=== PATIENT | female | born 1995 | race Caucasian/White ===

== ENCOUNTER 2018-04-25 22:47 | Emergency (ER) | payer SELFPAY ==
[2018-04-25] MEDS ORDERED: NA CHLORIDE 0.9% 1,000 ML ONE (23:39)
[2018-04-25] MEDS ORDERED: DICYCLOMINE HCL 10 MG CAP ONE (23:39)
[2018-04-25 23:59] LABS: Absolute Lymphocytes (CBC) 2.7 K/uL (0.7-4.9); Absolute Monocytes 0.8 K/uL (0.1-1.3); Basophils % 0.2 % (0-1.3); Eosinophils % 0.5 % (0-4.4); Hematocrit 41.2 % (36.0-45.0); Lymphocytes % 23.2 % (15.3-44.8); MCV 84.1 fL (80-100); MPV 10.1 fL (7.6-11.3); Monocytes % 6.6 % (3.3-12.3)
[2018-04-26 00:30] LABS: ALT/SGPT 29 U/L (12-78); AST/SGOT 34 U/L (15-37); Albumin 3.8 g/dL (3.4-5.0); Alkaline Phosphatase 85 U/L (45-117); BUN Blood Urea Nitrogen 12 mg/dL (7-18); Bicarbonate 27 mmol/L (21-32); Bilirubin Direct < 0.1 mg/dL (0-0.2); Bilirubin Total 0.2 mg/dL (0.2-1.0); Glucose Level 108 mg/dL (74-106); Lipase 304 U/L (73-393); Potassium 3.4 mmol/L (3.5-5.1); Protein, Total 8.2 g/dL (6.4-8.2); Sodium Level 139 mmol/L (136-145)
[2018-04-26 00:55] LABS: Urine Blood 3+ (NEG); Urine Glucose NEGATIVE (NEG); Urine Protein 1+ (NEG); Urine Specific Gravity <1.005 (1.005-1.030)
[2018-04-26 00:59] LABS: Urine Bacteria <20 /HPF (<20)
[2018-04-26 01:00] LABS: Calcium Oxalate Crystals- Ur MANY (NONE SEEN); Urine Culture Reflex Order REFLEXED; Urine Mucus 2+ /HPF (NONE SEEN)
[2018-04-26] MEDS ORDERED: FENTANYL CITR 100 MCG/2 ML ONE (01:26)
--- NOTE | 2018-04-26 02:33 | ER ---
Nurse's Notes [facility] Name: Ruth Lora Age: 23 yrs Sex: Female : 1995 Arrival Date: 04/25/2018 Time: 22:48 Bed 13 Private MD: Diagnosis: Upper abdominal pain, unspecified Presentation: 04/25 23:03 Presenting complaint: Patient states: that she is having severe upper abd pain that fc started at approx 1999, it went away and then came back. Positive for nausea and vomiting. Pt states that she ate steak and potatoes at 2030. Transition of care: patient was not received from another setting of care. Onset of symptoms was April 25, 2018 at 20:00. Risk Assessment: Do you want to hurt yourself or someone else? Patient reports no desire to harm self or others. Initial Sepsis Screen: Does the patient meet any 2 criteria? No. Patient's initial sepsis screen is negative. Does the patient have a suspected source of infection? No. Patient's initial sepsis screen is negative. Care prior to arrival: None. 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 - Social history:: Smoking status: Patient/guardian denies using tobacco, Patient/guardian denies using alcohol, street drugs. - Ebola Screening: : Patient negative for fever greater than or equal to 101.5 degrees Fahrenheit, and additional compatible Ebola Virus Disease symptoms Patient denies exposure to infectious person Patient denies travel to an Ebola-affected area in the 21 days before illness onset. Screenin:43 Abuse screen: Denies threats or abuse. Denies injuries from another. Nutritional ao screening: No deficits noted. Tuberculosis screening: No symptoms or risk factors identified. Fall Risk None identified. Assessment: 23:40 General: Appears in no apparent distress. uncomfortable, obese, Behavior is calm, ao cooperative, anxious. Pain: Complains of pain in abdomen Pain currently is 10 out of 10 on a pain scale. Neuro: Level of Consciousness is awake, alert, obeys commands, Oriented to person, place, time, situation, Appropriate for age Moves all extremities. Full function Speech is normal, Facial symmetry appears normal, Pupils are PERRLA. Cardiovascular: Capillary refill < 3 seconds Patient's skin is warm and dry. Respiratory: Airway is patent Respiratory effort is even, unlabored, Respiratory pattern is regular, symmetrical. GI: Abdomen is round obese, Bowel sounds present X 4 quads. Abd is soft and non tender X 4 quads. Reports lower abdominal pain, bloating, Pain is 10 out of 10 on a pain scale. : No signs and/or symptoms were reported regarding the genitourinary system. EENT: No signs and/or symptoms were reported regarding the EENT system. Derm: Skin is intact, Skin is moist, Skin is pink, warm \T\ dry. normal, Skin temperature is warm. Musculoskeletal: Circulation, motion, and sensation intact. Range of motion: intact in all extremities. 04/26 00:17 Reassessment: Patient appears in no apparent distress at this time. Patient and/or ao family updated on plan of care and expected duration. Pain level reassessed. Patient is alert, oriented x 3, equal unlabored respirations, skin warm/dry/pink. Waiting on CT scan. 01:26 Reassessment: Patient appears in no apparent distress at this time. Patient and/or ao family updated on plan of care and expected duration. Pain level reassessed. Patient is alert, oriented x 3, equal unlabored respirations, skin warm/dry/pink. Patient going to CT. Vital Signs: 04/25 23:05 BP 127 / 78; Pulse 75; Resp 18; Temp 97.7(O); Pulse Ox 100% on R/A; Weight 97.52 kg fc (R); Height 5 ft. 6 in. (167.64 cm) (R); Pain 10/10; 04/26 00:17 BP 118 / 70; Pulse 72; Resp 16; Pulse Ox 100% on R/A; ao 01:26 BP 112 / 72; Pulse 73; Resp 16; Pulse Ox 99% on R/A; ao 04/25 23:05 Body Mass Index 34.70 (97.52 kg, 167.64 cm) ED Course: 04/25 22:48 Patient arrived in ED. es 23:05 Triage completed. fc 23:05 Arm band placed on Patient placed in an exam room, on a stretcher. fc 23:14 Mandy Walsh FNP-C is [facility]. snw 23:14 Mason Francis MD is Attending Physician. snw 23:27 Max Hannah, ROMEO is Primary Nurse. ao 23:43 Patient has correct armband on for positive identification. Pulse ox on. NIBP on. ao 04/26 00:50 No provider procedures requiring assistance completed. Inserted saline lock: 20 gauge ao in right antecubital area, using aseptic technique. ,using aseptic technique. By Ray data control assistant IV discontinued, intact, bleeding controlled, No redness/swelling at site. Pressure dressing applied. 01:32 CT completed. Patient tolerated procedure well. Patient moved to CT via stretcher. eh 01:32 Patient moved back from CT. 01:39 CT Stone Protocol In Process Unspecified. EDMS Administered Medications: 04/25 23:39 Drug: NS 0.9% 1000 ml Route: IV; Rate: 1 bolus; Site: left antecubital; ao 04/26 01:25 Follow up: IV Status: Completed infusion; IV Intake: 1000ml ao 04/25 23:39 Drug: Bentyl 20 mg Route: PO; ao 04/26 01:26 Follow up: Response: No adverse reaction; Pain is unchanged, physician notified ao 01:25 Drug: fentaNYL (PF) 25 mcg Route: IVP; Site: left antecubital; ao 02:52 Follow up: Response: No adverse reaction ao Intake: 01:25 IV: 1000ml; Total: 1000ml. ao Outcome: 02:33 Discharge ordered by . snw 02:51 Discharged to home ambulatory, with family. ao 02:51 Condition: stable 02:51 Discharge instructions given to patient, Instructed on discharge instructions, follow up and referral plans. Demonstrated understanding of instructions, follow-up care, medications, Prescriptions given X 3. 02:51 Patient left the ED. ao Addendum: 04/30/2018 16:11 Addendum: Culture Results: Positive urine culture. No further action required. Other: s s OK per KASEY Martínez. No urinary complaints. . Signatures: Dispatcher [employer] EDMT Mandy Walsh FNP-C FNP-Csnw Briana Horta Ervin eh Chretien, Felicia, RN RN fc Afia Thompson RN RN ss Max Hannah RN RN ao
--- NOTE | 2018-04-26 02:33 | EDPHYS ---
Physician Documentation [facility] Name: Ruth Lora Age: 23 yrs Sex: Female : 1995 Arrival Date: 04/25/2018 Time: 22:48 Bed 13 Private MD: ED Physician Mason Francis HPI: 04/25 23:56 This 23 yrs old Female presents to ER via Ambulatory with complaints of snw Abdominal Pain. 23:56 The patient presents with abdominal pain in the epigastric area, in the upper abdomen. snw Onset: The symptoms/episode began/occurred suddenly, today. The symptoms do not radiate. Associated signs and symptoms: Pertinent positives: nausea and vomiting. The symptoms are described as sharp, shooting, stabbing. Severity of pain: At its worst the pain was incapacitating in the emergency department the pain 15/10. The patient has not experienced similar symptoms in the past. The patient has not recently seen a physician. 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 - Social history:: Smoking status: Patient/guardian denies using tobacco, Patient/guardian denies using alcohol, street drugs. - Ebola Screening: : Patient negative for fever greater than or equal to 101.5 degrees Fahrenheit, and additional compatible Ebola Virus Disease symptoms Patient denies exposure to infectious person Patient denies travel to an Ebola-affected area in the 21 days before illness onset. ROS: 23:56 Constitutional: Negative for fever, chills, and weight loss, Eyes: Negative for injury, snw pain, redness, and discharge, ENT: Negative for injury, pain, and discharge, Neck: Negative for injury, pain, and swelling, Cardiovascular: Negative for chest pain, palpitations, and edema, Respiratory: Negative for shortness of breath, cough, wheezing, and pleuritic chest pain, Back: Negative for injury and pain, : Negative for injury, bleeding, discharge, and swelling, MS/Extremity: Negative for injury and deformity, Skin: Negative for injury, rash, and discoloration, Neuro: Negative for headache, weakness, numbness, tingling, and seizure. 23:56 Abdomen/GI: Positive for abdominal pain, nausea and vomiting, abdominal cramps, abdominal distension. Exam: 23:56 Constitutional: This is a well developed, well nourished patient who is awake, alert, snw and in no acute distress. Head/Face: Normocephalic, atraumatic. Eyes: Pupils equal round and reactive to light, extra-ocular motions intact. Lids and lashes normal. Conjunctiva and sclera are non-icteric and not injected. Cornea within normal limits. Periorbital areas with no swelling, redness, or edema. ENT: Nares patent. No nasal discharge, no septal abnormalities noted. Tympanic membranes are normal and external auditory canals are clear. Oropharynx with no redness, swelling, or masses, exudates, or evidence of obstruction, uvula midline. Mucous membranes moist. Neck: Trachea midline, no thyromegaly or masses palpated, and no cervical lymphadenopathy. Supple, full range of motion without nuchal rigidity, or vertebral point tenderness. No Meningismus. Chest/axilla: Normal chest wall appearance and motion. Nontender with no deformity. No lesions are appreciated. Cardiovascular: Regular rate and rhythm with a normal S1 and S2. No gallops, murmurs, or rubs. Normal PMI, no JVD. No pulse deficits. Respiratory: Lungs have equal breath sounds bilaterally, clear to auscultation and percussion. No rales, rhonchi or wheezes noted. No increased work of breathing, no retractions or nasal flaring. Back: No spinal tenderness. No costovertebral tenderness. Full range of motion. Skin: Warm, dry with normal turgor. Normal color with no rashes, no lesions, and no evidence of cellulitis. MS/ Extremity: Pulses equal, no cyanosis. Neurovascular intact. Full, normal range of motion. Neuro: Awake and alert, GCS 15, oriented to person, place, time, and situation. Cranial nerves II-XII grossly intact. Motor strength 5/5 in all extremities. Sensory grossly intact. Cerebellar exam normal. Normal gait. Psych: Awake, alert, with orientation to person, place and time. Behavior, mood, and affect are within normal limits. 23:56 Abdomen/GI: Inspection: obese Bowel sounds: active, Palpation: moderate abdominal tenderness, in the right upper quadrant and left upper quadrant. Vital Signs: 23:05 BP 127 / 78; Pulse 75; Resp 18; Temp 97.7(O); Pulse Ox 100% on R/A; Weight 97.52 kg fc (R); Height 5 ft. 6 in. (167.64 cm) (R); Pain 10/; 04/26 00:17 BP 118 / 70; Pulse 72; Resp 16; Pulse Ox 100% on R/A; ao 01:26 BP 112 / 72; Pulse 73; Resp 16; Pulse Ox 99% on R/A; ao 04/25 23:05 Body Mass Index 34.70 (97.52 kg, 167.64 cm) fc MDM: 04/25 23:16 Patient medically screened. snw 04/26 02:38 Data reviewed: vital signs, nurses notes. Data interpreted: Pulse oximetry: on room air snw is 99 %. Interpretation: normal. Counseling: I had a detailed discussion with the patient and/or guardian regarding: the historical points, exam findings, and any diagnostic results supporting the discharge/admit diagnosis, lab results, radiology results, the need for outpatient follow up, to return to the emergency department if symptoms worsen or persist or if there are any questions or concerns that arise at home. Response to treatment: the patient's symptoms have markedly improved after treatment, patient is well hydrated. and as a result, I will discharge patient, administer pain medication, antiemetics. 04/25 23:16 Order name: Basic Metabolic Panel; Complete Time: 00:40 snw 04/25 23:16 Order name: CBC with Diff; Complete Time: 00:40 snw 04/25 23:16 Order name: Hepatic Function; Complete Time: 00:40 snw 04/25 23:16 Order name: Lipase; Complete Time: 00:40 snw 04/25 23:16 Order name: Urine Culture snw 04/25 23:16 Order name: Urine Microscopic Only; Complete Time: 01:09 snw 04/25 23:16 Order name: IV Saline Lock; Complete Time: 23:40 snw 04/25 23:16 Order name: Labs collected and sent; Complete Time: 23:40 snw 04/25 23:35 Order name: Urine Dipstick--Ancillary (enter results); Complete Time: 01:09 co 04/25 23:35 Order name: Urine --Ancillary (enter results); Complete Time: 01:09 co 04/26 01:10 Order name: CT Stone Protocol w 04/25 23:16 Order name: Urine Test (obtain specimen); Complete Time: 01:33 snw 04/25 23:16 Order name: Urine Dipstick-Ancillary (obtain specimen); Complete Time: 01:33 snw Administered Medications: 04/25 23:39 Drug: NS 0.9% 1000 ml Route: IV; Rate: 1 bolus; Site: left antecubital; ao 04/26 01:25 Follow up: IV Status: Completed infusion; IV Intake: 1000ml ao 04/25 23:39 Drug: Bentyl 20 mg Route: PO; ao 04/26 01:26 Follow up: Response: No adverse reaction; Pain is unchanged, physician notified ao 01:25 Drug: fentaNYL (PF) 25 mcg Route: IVP; Site: left antecubital; ao 02:52 Follow up: Response: No adverse reaction ao Disposition: 04/26/18 02:33 Discharged to Home. Impression: Upper abdominal pain, unspecified. - Condition is Stable. - Discharge Instructions: Abdominal Pain, Adult, Fat and Cholesterol Restricted Diet, Nausea and Vomiting, Adult, Rehydration, Adult. - Prescriptions for Bentyl 20 mg Oral Tablet - take 1 tablet by ORAL route every 6 hours As needed; 20 tablet. Nexium 20 mg Oral Capsule - take 1 capsule by ORAL route once daily; 20 capsule. Zofran 4 mg Oral Tablet - take 1 tablet by ORAL route every 12 hours As needed; 20 tablet. - Work release form, Medication Reconciliation Form, Thank You Letter, Antibiotic Education, Prescription Opioid Use form. - Follow up: Emergency Department; When: As needed; Reason: Worsening of condition. Follow up: Private Physician; When: 1 - 2 days; Reason: Recheck today's complaints, Continuance of care, Re-evaluation by your physician. Addendum: 04/28/2018 17:29 Co-signature as Attending Physician, Mason Francis MD. g s Signatures: Dispatcher [facility] Mandy Walsh, AHMET-C SENIOR GAMEMASTER-Csnw Latoya Harrell RN Max Cummings RN RN ao Starr, Mason, MD MD gs Corrections: (The following items were deleted from the chart) 04/26 02:51 02:33 04/26/2018 02:33 Discharged to Home. Impression: Upper abdominal pain, ao unspecified. Condition is Stable. Forms are Medication Reconciliation Form, Thank You Letter, Antibiotic Education, Prescription Opioid Use. Follow up: Emergency Department; When: As needed; Reason: Worsening of condition. Follow up: Private Physician; When: 1 - 2 days; Reason: Recheck today's complaints, Continuance of care, Re-evaluation by your physician. snw
--- NOTE | 2018-04-26 08:19 | RAD REPORT ---
EXAM DESCRIPTION: CT - Stone Protocol - 04/26/2018 4:56 am CLINICAL HISTORY: Abdominal pain. Epigastric pain with nausea and vomiting COMPARISON: None. TECHNIQUE: Computed axial tomography of the abdomen pelvis was obtained without oral or IV contrast. Lack of IV and oral contrast limits evaluation of solid organs, bowel, and vessels. Coronal reformat kina images were obtained and reviewed. A preliminary report was generated by Split and r fei prior to this dictation All CT scans are performed using dose optimization technique as appropriate and may include automated exposure control or mA/KV adjustment according to patient size. FINDINGS: A renal calculus is not seen. An ureteral calculus is not noted. A bladder calculus is not present. The liver, spleen, pancreas and adrenals appear grossly normal There is no evidence of diverticulitis. The appendix appears normal. An adnexal mass is not seen A tiny umbilical hernia is present IMPRESSION: Negative for a genitourinary calculus
== END 2018-04-26 02:51 | disposition home or self-care (01) ==
LOC: ER 22:47
DX: R10.10 Upper abdominal pain, unspecified (principal); Z88.6 Allergy status to analgesic agent
CPT/HCPCS: 36415; 74176; 76377; 80048; 80076; 81003; 81015; 81025; 83690; 85025; 87077; 87086; 87088; 87186; 96361; 96374; 99284; J3010; J7030

== ENCOUNTER 2019-04-29 01:26 | Emergency (ER) | payer SELFPAY ==
[2019-04-29] MEDS ORDERED: KETOROLAC 30 MG/ML INJ ONE (01:52)
--- NOTE | 2019-04-29 02:03 | EDPHYS ---
Physician Documentation [facility] Name: Ruth Lora Age: 24 yrs Sex: Female : 1995 Arrival Date: 04/29/2019 Time: 01:30 Bed 7 Private MD: ED Physician Devon Lewis HPI: 04/29 01:59 This 24 yrs old Female presents to ER via Ambulatory with complaints of Back ps1 Pain. 01:59 patient presentig with atraumatic back pain. Additionally patient started menstrual ps1 cycle today. No fever. No urinary complaints. No fecal incontinence or anesthesia with wiping or between the legs. Pain worse with flexion. Not immunocompromised. . 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 - Social history:: Smoking status: Patient/guardian denies using tobacco. - Ebola Screening: : No symptoms or risks identified at this time. ROS: 01:59 Constitutional: Negative for fever, chills, and weight loss, Eyes: Negative for injury, ps1 pain, redness, and discharge, Cardiovascular: Negative for chest pain, palpitations, and edema, Respiratory: Negative for shortness of breath, cough, wheezing, and pleuritic chest pain, Abdomen/GI: Negative for abdominal pain, nausea, vomiting, diarrhea, and constipation, Skin: Negative for injury, rash, and discoloration. 01:59 Back: Positive for pain with movement. Exam: 01:59 Constitutional: This is a well developed, well nourished patient who is awake, alert, ps1 and in no acute distress. Head/Face: Normocephalic, atraumatic. Eyes: Pupils equal round and reactive to light, extra-ocular motions intact. Lids and lashes normal. Conjunctiva and sclera are non-icteric and not injected. Chest/axilla: Normal chest wall appearance and motion. Nontender with no deformity. No lesions are appreciated. Cardiovascular: Regular rate and rhythm. No gallops, murmurs, or rubs. Normal PMI, no JVD. No pulse deficits. Respiratory: Lungs have equal breath sounds bilaterally, clear to auscultation and percussion. No rales, rhonchi or wheezes noted. No increased work of breathing, no retractions or nasal flaring. Abdomen/GI: Soft, non-tender, with normal bowel sounds. No distension or tympany. No guarding or rebound. No evidence of tenderness throughout. MS/ Extremity: Pulses equal, no cyanosis. Neurovascular intact. Full, normal range of motion. Neuro: Awake and alert, GCS 15, oriented to person, place, time, and situation. Cranial nerves II-XII grossly intact. Sensory grossly intact. 01:59 Back: pain, that is moderate, ROM is painful, muscle spasm, is appreciated in the right mid back and right low back. Vital Signs: 01:32 BP 131 / 93; Pulse 101; Resp 18; Temp 98.5; Pulse Ox 99% on R/A; Weight 97.52 kg; aa1 Height 5 ft. 6 in. (167.64 cm); Pain 10/10; 01:32 Body Mass Index 34.70 (97.52 kg, 167.64 cm) aa1 MDM: 02:02 Patient medically screened. ps1 Administered Medications: 01:53 Drug: TORadol 30 mg Route: IM; Site: right deltoid; jd3 02:09 Follow up: Response: No adverse reaction jd3 Disposition: 04/29/19 02:02 Discharged to Home. Impression: Low back pain. - Condition is Stable. - Discharge Instructions: Back Pain, Adult, Musculoskeletal Pain. - Prescriptions for Robaxin 500 mg Oral Tablet - take 2 tablet by ORAL route every 6 hours As needed; 40 tablet. Tramadol 50 mg Oral Tablet - take 1 tablet by ORAL route every 8 hours as needed; 12 tablet. Medrol (Nicolas) 4 mg Oral Tablets, Dose Pack - take 1 tablet by ORAL route as directed - follow package instructions; 1 packet. - Medication Reconciliation Form, Thank You Letter, Antibiotic Education, Prescription Opioid Use form. - Follow up: Private Physician; When: As needed; Reason: Further diagnostic work-up, Recheck today's complaints, Continuance of care. Follow up: Emergency Department; When: As needed; Reason: Fever > 102 F, Worsening of condition. - Problem is new. - Symptoms have improved. Signatures: Rhea Stanton RN RN aa1 Raymundo Barnhart RN RN jd3 Devon Lewis MD MD ps1 Corrections: (The following items were deleted from the chart) 02:09 02:02 04/29/2019 02:02 Discharged to Home. Impression: Low back pain. Condition is jd3 Stable. Forms are Medication Reconciliation Form, Thank You Letter, Antibiotic Education, Prescription Opioid Use. Follow up: Private Physician; When: As needed; Reason: Further diagnostic work-up, Recheck today's complaints, Continuance of care. Follow up: Emergency Department; When: As needed; Reason: Fever > 102 F, Worsening of condition. Problem is new. Symptoms have improved. ps1
--- NOTE | 2019-04-29 02:03 | ER ---
Nurse's Notes [facility] Name: Ruth Lora Age: 24 yrs Sex: Female : 1995 Arrival Date: 04/29/2019 Time: 01:30 Bed 7 [facility] MD: Diagnosis: Low back pain Presentation: 04/29 01:32 Presenting complaint: Patient states: she has had R low back pain since yesterday. aa1 Denies injury. Transition of care: patient was not received from another setting of care. Onset of symptoms was April 28, 2019. Risk Assessment: Do you want to hurt yourself or someone else? Patient reports no desire to harm self or others. Initial Sepsis Screen: Does the patient meet any 2 criteria? No. Patient's initial sepsis screen is negative. Does the patient have a suspected source of infection? No. Patient's initial sepsis screen is negative. Care prior to arrival: None. 01:32 Method Of Arrival: Ambulatory aa1 01:32 Acuity: DEWAYNE 4 aa1 Triage Assessment: 01:32 General: Appears in no apparent distress. uncomfortable, Behavior is calm, cooperative, aa1 appropriate for age. 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 - Social history:: Smoking status: Patient/guardian denies using tobacco. - Ebola Screening: : No symptoms or risks identified at this time. Screenin:38 Abuse screen: Denies threats or abuse. Nutritional screening: No deficits noted. jd3 Tuberculosis screening: No symptoms or risk factors identified. Fall Risk Ambulatory Aid- None/Bed Rest/Nurse Assist (0 pts). Gait- Normal/Bed Rest/Wheelchair (0 pts) Mental Status- Oriented to own ability (0 pts). Total Bob Fall Scale indicates No Risk (0-24 pts). Assessment: 01:36 General: Appears in no apparent distress. uncomfortable, Behavior is calm, cooperative, jd3 appropriate for age. Pain: Complains of pain in right low back Quality of pain is described as aching. Neuro: Level of Consciousness is awake, alert, obeys commands, Oriented to person, place, time, situation. Cardiovascular: Capillary refill < 3 seconds Patient's skin is warm and dry. Respiratory: Airway is patent Respiratory effort is even, unlabored, Respiratory pattern is regular, symmetrical, Denies cough, shortness of breath. GI: No signs and/or symptoms were reported involving the gastrointestinal system. Patient currently denies constipation, diarrhea, nausea, vomiting. : No signs and/or symptoms were reported regarding the genitourinary system. Denies burning with urination, inability to void. EENT: No signs and/or symptoms were reported regarding the EENT system. Derm: Skin is intact, Skin is dry, Skin is normal, Skin temperature is warm. Musculoskeletal: Circulation, motion, and sensation intact. Range of motion: intact in all extremities. 02:08 Reassessment: Patient appears in no apparent distress at this time. Patient and/or jd3 family updated on plan of care and expected duration. Pain level reassessed. Patient is alert, oriented x 3, equal unlabored respirations, skin warm/dry/pink. Patient states feeling better. Vital Signs: 01:32 BP 131 / 93; Pulse 101; Resp 18; Temp 98.5; Pulse Ox 99% on R/A; Weight 97.52 kg; aa1 Height 5 ft. 6 in. (167.64 cm); Pain 10/10; 01:32 Body Mass Index 34.70 (97.52 kg, 167.64 cm) aa1 ED Course: 01:30 Patient arrived in ED. mr 01:33 Devon Lewis MD is Attending Physician. ps1 01:33 Raymundo Barnhart, ROMEO is Primary Nurse. jd3 01:38 Patient has correct armband on for positive identification. Bed in low position. Call jd3 light in reach. Side rails up X 1. Adult w/ patient. 01:38 Arm band placed on. jd3 01:54 Triage completed. aa1 02:08 No provider procedures requiring assistance completed. Patient did not have IV access jd3 during this emergency room visit. Administered Medications: 01:53 Drug: TORadol 30 mg Route: IM; Site: right deltoid; jd3 02:09 Follow up: Response: No adverse reaction jd3 Outcome: 02:02 Discharge ordered by . ps1 02:09 Discharged to home ambulatory, with family. jd3 02:09 Condition: stable 02:09 Discharge instructions given to patient, family, Instructed on discharge instructions, follow up and referral plans. medication usage, Demonstrated understanding of instructions, follow-up care, medications, Prescriptions given X 3. 02:09 Patient left the ED. jd3 Signatures: Rhea Stanton RN RN aa1 Deann Cooper Jonathon, RN RN jd3 Devon Lewis MD MD ps1
[2019-04-29 02:47] VITALS: BP 131/93; TEMP 98.5; O2SAT 99
== END 2019-04-29 02:09 | disposition home or self-care (01) ==
LOC: ER 01:26
DX: M54.5 Low back pain (principal)
CPT/HCPCS: 96372; 99283

== ENCOUNTER 2024-09-06 09:46 | Emergency (ER) | payer SELFPAY ==
[2024-09-06] MEDS ORDERED: NA CHLORIDE 0.9% 1,000 ML ONE (11:02)
--- NOTE | 2024-09-06 11:02 | RAD REPORT ---
Abdomen Exam Limited: 09/06/2024 10:37 AM CLINICAL HISTORY: ABD PAIN STUDY: Limited right upper quadrant ultrasound of abdomen. COMPARISON: None. FINDINGS: Liver: Limited evaluation but grossly unremarkable. Bile ducts: No intrahepatic or extrahepatic biliary ductal dilatation. Common bile duct measures 2 mm. Gallbladder: Normal. IMPRESSION: Unremarkable exam.
[2024-09-06 11:08] LABS: Absolute Eosinophils 0.1 K/uL (0-0.5); Absolute Lymphocytes (CBC) 2.4 K/uL (0.7-4.9); Absolute Monocytes 0.6 K/uL (0.1-1.3); Absolute Neutrophil 7.1 K/uL (1.8-8.0); Basophils % 0.4 % (0-1.3); Eosinophils % 0.8 % (0-4.4); Hematocrit 39.5 % (36.0-45.0); Hemoglobin 13.2 g/dL (12.0-15.0); Lymphocytes % 23.2 % (15.3-44.8); MCH 28.8 pg (27.0-35.0); MCHC 33.4 g/dL (32.0-36.0); MPV 9.5 fL (7.6-11.3); Monocytes % 5.8 % (3.3-12.3); Neutrophils % 69.8 % (41.7-73.7); Platelets 261 thou/uL (152-406); Red Cell Distribution Width 14.4 % (12.1-15.2)
[2024-09-06] MEDS ORDERED: LORazepam 2 MG/ML VIAL ONE (11:18)
[2024-09-06 11:25] LABS: Specific Gravity > 1.030 (1.005-1.030)
[2024-09-06 11:27] LABS: Specific Gravity > 1.030 (1.005-1.030); Urine Bacteria <20 /HPF (<20); Urine Bilirubin NEGATIVE (Negative); Urine Blood 1+ (Negative); Urine Clarity Turbid (Clear); Urine Color Light-Yellow (Yellow); Urine Culture Reflex Order NOT NEEDED; Urine Glucose NEGATIVE (Negative); Urine Ketones NEGATIVE (Negative); Urine Microscopic Reflex YN ORDER UMIC; Urine Mucus 4+ /HPF (None Seen); Urine Nitrite NEGATIVE (Negative); Urine Protein TRACE (Negative); Urine Urobilinogen Normal (Normal); Urine WBC <5 /HPF (<5)
[2024-09-06 11:29] LABS: ALT/SGPT 20 U/L (13-56); AST/SGOT 16 U/L (15-37); Albumin 3.7 g/dL (3.4-5.0); Albumin/Globulin Ratio 0.9 (1.1-1.8); Alkaline Phosphatase 60 U/L (45-117); BUN Blood Urea Nitrogen 20 mg/dL (7-18); Bicarbonate 23 mEq/L (21-32); Bilirubin Total 0.3 mg/dL (0.2-1.0); Globulin 4.3 g/dL (2.3-3.5); Glomerular Filtration Rate 104 ml/min (=/>90); Glucose Level 91 mg/dL (74-106); Sodium Level 136 mEq/L (136-145)
[2024-09-06 11:31] LABS: Troponin High Sensitivity < 3.0 pg/mL (<58.9)
[2024-09-06 11:34] LABS: Barbiturates NEGATIVE (NEGATIVE); Benzodiazepines NEGATIVE (NEGATIVE); Cocaine NEGATIVE (NEGATIVE); METHAMPHETAM NEGATIVE (NEGATIVE); Methadone NEGATIVE (NEGATIVE); Opiates NEGATIVE (NEGATIVE); Phencyclidine NEGATIVE (NEGATIVE); THC Cannibis NEGATIVE (NEGATIVE)
--- NOTE | 2024-09-06 12:09 | RAD REPORT ---
EXAMINATION: CTA CHEST PE CLINICAL INDICATION: Female, 29 years old. CHEST PAIN TECHNIQUE: This examination was performed according to an angiographic protocol with 3D post-processi ng. This involves 3D reconstructions, MIPs, volume rendered images and/or shaded surface rendering. One or more of the following dose reduction techniques were used: Automated exposure control, adjustm ent of the mA and/or kV according to patient size, and/or iterative reconstruction. Unless otherwise specified, incidental findings do not require dedicated imaging follow-up. [id number]. COMPARISON: No priors. FINDINGS: LOWER NECK: Visualized thyroid gland and soft tissues are normal. LUNGS AND AIRWAYS: Low lung volumes. Patchy groundglass opacities bilaterally favored to represent hy poventilation.No suspicious and/or stable pulmonary nodules. PLEURA: No pleural effusion. No pneumothorax. Hemidiaphragms are normally positioned. MEDIASTINUM AND LYMPH NODES: No mediastinal mass or fluid collection. Normal size mediastinal, hilar, and axillary lymph nodes. THORACIC AORTA: No thoracic aortic aneurysm. PULMONARY ARTERIES: Caliber is within normal limits. No pulmonary emboli identified to the level of t he segmental pulmonary arteries. The subsegmental pulmonary arteries cannot be adequately assessed due to motion/suboptimal contrast opacification. HEART: Normal heart size. No coronary calcifications.No significant pericardial effusion. OSSEOUS STRUCTURES AND CHEST WALL: No fracture or suspicious osseous lesions. UPPER ABDOMEN: No acute abnormalities. IMPRESSION: No evidence of pulmonary emboli to the segmental level. Bilateral groundglass opacities favored to be related to hypoventilation/low lung volumes. No convincing evidence of either edema or pneumonia..
--- NOTE | 2024-09-06 12:13 | ER ---
Nurse's Notes [facility] Name: Ruth Lora Age: 29 yrs Sex: Female : 1995 Arrival Date: 09/06/2024 Time: 09:46 Bed 20 Private MD: Diagnosis: Epigastric abdominal tenderness;Chest pain on breathing;Headache Presentation: 09/06 10:09 Chief complaint: Patient states: Heaviness in chest since Monday evening. jl7 Coronavirus screen: At this time, the client does not indicate any symptoms associated with coronavirus-19. Ebola Screen: No symptoms or risks identified at this time. Initial Sepsis Screen: Does the patient meet any 2 criteria? No. Patient's initial sepsis screen is negative. Does the patient have a suspected source of infection? No. Patient's initial sepsis screen is negative. Risk Assessment: Do you want to hurt yourself or someone else? Patient reports no desire to harm self or others. Onset of symptoms was September 04, 2024. 10:09 Method Of Arrival: Ambulatory [facility] 10:09 Acuity: DEWAYNE 2 jl7 Triage Assessment: 10:11 General: Appears in no apparent distress. uncomfortable, Behavior is cooperative, jl7 anxious, crying. Pain: Complains of pain in chest Pain currently is 8 out of 10 on a pain scale. Cardiovascular: Patient's skin is warm and dry. 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 - Infectious Disease History:: Denies. - Social history:: Smoking status: Reported history of juuling and/or vaping. - Family history:: not pertinent. Screenin:29 [facility] ED Fall Risk Assessment (Adult) History of falling in the last 3 months, cm10 including since admission No falls in past 3 months (0 pts) Confusion or Disorientation No (0 pts) Intoxicated or Sedated No (0 pts) Impaired Gait No (0 pts) Mobility Assist Device Used No (0 pt) Altered Elimination No (0 pt) Score/Fall Risk Level 0 - 2 = Low Risk Oriented to surroundings, Maintained a safe environment, Hourly rounding (assess needs \T\ fall precautionary measures) done. Abuse screen: Denies threats or abuse. Denies injuries from another. Nutritional screening: No deficits noted. Tuberculosis screening: No symptoms or risk factors identified. Assessment: 11:28 General: Appears in no apparent distress. comfortable, Behavior is calm, cooperative. cm10 Pain: Complains of pain in chest Pain does not radiate. Pain currently is 8 out of 10 on a pain scale. Quality of pain is described as pressure, Pain began suddenly. Neuro: No deficits noted. Level of Consciousness is awake, alert, obeys commands, Oriented to person, place, time, situation, Appropriate for age. Cardiovascular: No deficits noted. Reports chest pain, Patient's skin is warm and dry. Respiratory: No deficits noted. Airway is patent Respiratory effort is even, unlabored, Respiratory pattern is regular, symmetrical. Vital Signs: 10:09 BP 136 / 87; Pulse 89; Resp 15; Temp 97.1; Pulse Ox 99% ; Weight 117.93 kg; Height 5 jl7 ft. 6 in. ; Pain 8/10; 11:30 BP 111 / 61; Pulse 77; Resp 15; Pulse Ox 100% ; cm10 12:27 BP 110 / 63; Pulse 74; Resp 19; Temp 98.2; Pulse Ox 99% ; me1 10:09 Body Mass Index 41.96 (117.93 kg, 167.64 cm) jl7 10:09 Pain Scale: Adult jl7 ED Course: 09:47 Patient arrived in ED. mr 09:48 Romeo Obando MD is Attending Physician. mimi 10:11 Triage completed. jl7 10:11 Arm band placed on right wrist. jl7 10:15 EKG done, by ED staff, reviewed by Romeo Obando MD. nh2 10:55 Inserted saline lock: 22 gauge in left antecubital area, using aseptic technique. Blood nh2 collected. Flushed with 10 mL NS. 11:00 US Abdomen Limited In Process Unspecified. EDMS 11:13 Troponin HS Sent. nh2 11:13 Comprehensive Metabolic Panel Sent. nh2 11:21 UDS Sent. cm10 11:21 PREGU Sent. cm10 11:21 Urinalysis w/ reflexes Sent. cm10 11:30 Patient has correct armband on for positive identification. Placed in gown. Bed in low cm10 position. Call light in reach. Side rails up X2. Client placed on continuous cardiac and pulse oximetry monitoring. NIBP monitoring applied. 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 11:53 CT Chest For PE Angio In Process Unspecified. EDMS 12:00 Patient maintains SpO2 saturation greater than 95% on room air. cm10 12:08 Report given to ROMEO Dumont. cm10 12:23 Julia Carbajal, RN is Primary Nurse. me1 12:34 Provided Education on: POC. Verbalized understanding.. me1 12:34 No provider procedures requiring assistance completed. IV discontinued, intact, me1 bleeding controlled, No redness/swelling at site. Pressure dressing applied. Administered Medications: 11:21 Drug: NS 0.9% IV 1000 ml IV at 1000 ml once; to be given as a bolus over 60 minutes cm10 Route: IV; Rate: 1000 ml; Site: left antecubital; 12:26 Follow up: Response: No adverse reaction; IV Status: Completed infusion; IV Intake: me1 1000ml 11:21 Drug: Ativan IVP 0.5 mg IVP once Route: IVP; Site: left antecubital; cm10 12:26 Follow up: Response: No adverse reaction; Anxiety decreased me1 Medication: 11:29 VIS not applicable for this client. cm10 Intake: 12:26 IV: 1000ml; Total: 1000ml. me1 Outcome: 12:13 Discharge ordered by . [facility] 12:34 Discharged to home ambulatory, with friend, me1 12:34 Condition: stable 12:34 Discharge instructions given to patient, friend, Instructed on discharge instructions, follow up and referral plans. medication usage, Demonstrated understanding of instructions, follow-up care, medications, Prescriptions given X 3, 12:35 Patient left the ED. me1 Signatures: Dispatcher [employer] EDRomeo Amador MD MD cha Rivera, Mary, Reg Reg mr Karime Sepulveda RN RN nga7 Zahra Tenorio RN RN cm10 Julia Carbajal, ROMEO WALTERS me1 Isac Marr Jr Corrections: (The following items were deleted from the chart) 10:12 10:11 Home Meds: control daily; tanisha garay
--- NOTE | 2024-09-06 12:14 | EDPHYS ---
Physician Documentation [facility] Name: Ruth Lora Age: 29 yrs Sex: Female : 1995 Arrival Date: 09/06/2024 Time: 09:46 Bed 20 Private MD: GLORIA Physician Romeo Obando HPI: 09/06 10:13 This 29 yrs old Female presents to ER via Ambulatory with complaints of Chest mimi Pain. 10:13 The patient or guardian reports chest pain that is located primarily in the substernal mimi area, anterior chest wall, bilaterally. The pain does not radiate. Associated signs and symptoms: The patient has no apparent associated signs or symptoms. The chest pain is described as a pressure. Duration: The patient or guardian reports multiple episodes, that have now resolved. Modifying factors: The symptoms are alleviated by nothing. the symptoms are aggravated by nothing. Severity of pain: At its worst the pain was mild moderate in the emergency department the pain is unchanged. The patient has experienced similar episodes in the past, several times. 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 - Infectious Disease History:: Denies. - Social history:: Smoking status: Reported history of juuling and/or vaping. - Family history:: not pertinent. ROS: 10:13 Constitutional: Negative for fever, chills, and weight loss, Eyes: Negative for injury, mimi pain, redness, and discharge, ENT: Negative for injury, pain, and discharge, Neck: Negative for injury, pain, and swelling, Respiratory: Negative for shortness of breath, cough, wheezing, and pleuritic chest pain, Back: Negative for injury and pain, : Negative for injury, bleeding, discharge, and swelling, MS/Extremity: Negative for injury and deformity, Skin: Negative for injury, rash, and discoloration, Neuro: Negative for headache, weakness, numbness, tingling, and seizure, Psych: Negative for depression, anxiety, suicide ideation, homicidal ideation, and hallucinations, Allergy/Immunology: Negative for hives, rash, and allergies, Endocrine: Negative for neck swelling, polydipsia, polyuria, polyphagia, and marked weight changes, Hematologic/Lymphatic: Negative for swollen nodes, abnormal bleeding, and unusual bruising, 10:13 Cardiovascular: Positive for chest pain, 10:13 Respiratory: Positive for shortness of breath, at rest. 10:13 MS/extremity: Negative for acute changes, Exam: 10:13 Constitutional: This is a well developed, well nourished patient who is awake, alert, mimi and in no acute distress. Head/Face: Normocephalic, atraumatic. Eyes: Pupils equal round and reactive to light, extra-ocular motions intact. Lids and lashes normal. Conjunctiva and sclera are non-icteric and not injected. Cornea within normal limits. Periorbital areas with no swelling, redness, or edema. ENT: Nares patent. No nasal discharge, no septal abnormalities noted. Tympanic membranes are normal and external auditory canals are clear. Oropharynx with no redness, swelling, or masses, exudates, or evidence of obstruction, uvula midline. Mucous membranes moist. Neck: Trachea midline, no thyromegaly or masses palpated, and no cervical lymphadenopathy. Supple, full range of motion without nuchal rigidity, or vertebral point tenderness. No Meningismus. Chest/axilla: Normal chest wall appearance and motion. Nontender with no deformity. No lesions are appreciated. Cardiovascular: Regular rate and rhythm with a normal S1 and S2. No gallops, murmurs, or rubs. Normal PMI, no JVD. No pulse deficits. Respiratory: Lungs have equal breath sounds bilaterally, clear to auscultation and percussion. No rales, rhonchi or wheezes noted. No increased work of breathing, no retractions or nasal flaring. Abdomen/GI: Soft, non-tender, with normal bowel sounds. No distension or tympany. No guarding or rebound. No evidence of tenderness throughout. Back: No spinal tenderness. No costovertebral tenderness. Full range of motion. Skin: Warm, dry with normal turgor. Normal color with no rashes, no lesions, and no evidence of cellulitis. MS/ Extremity: Pulses equal, no cyanosis. Neurovascular intact. Full, normal range of motion., bilateral aka Neuro: Awake and alert, GCS 15, oriented to person, place, time, and situation. Cranial nerves II-XII grossly intact. Motor strength 5/5 in all extremities. Sensory grossly intact. Cerebellar exam normal. Normal gait. Psych: Awake, alert, with orientation to person, place and time. Behavior, mood, and affect are within normal limits. 10:13 Musculoskeletal/extremity: DVT Exam: No signs of deep vein thrombosis. no pain, no swelling, no tenderness, negative Homans' sign noted on exam, no appreciated bluish discoloration, no erythema, no increased warmth, 10:17 ECG was reviewed by the Attending Physician. [facility] Vital Signs: 10:09 BP 136 / 87; Pulse 89; Resp 15; Temp 97.1; Pulse Ox 99% ; Weight 117.93 kg; Height 5 jl7 ft. 6 in. ; Pain 8/10; 11:30 BP 111 / 61; Pulse 77; Resp 15; Pulse Ox 100% ; cm10 12:27 BP 110 / 63; Pulse 74; Resp 19; Temp 98.2; Pulse Ox 99% ; me1 10:09 Body Mass Index 41.96 (117.93 kg, 167.64 cm) 7 10:09 Pain Scale: Adult jl7 MDM: 09:48 Medical Screening Exam initiated [facility] 10:02 Medical Screening Exam initiated [facility] 10:15 Differential diagnosis: abnormal EKG, acute myocardial infarction, acute pericarditis, mimi anxiety, coronary artery disease chest wall pain, Cholelithiasis costochondritis, esophagitis, gastritis, hiatal hernia, pancreatitis, peptic ulcer disease, pericarditis, pneumonia, pulmonary embolus, thoracic aortic disection, unstable angina. HEART Score: History: Slightly Suspicious (0), ECG: Normal (0), Age: < or = 45 years (0), Risk Factors: No Risk Factors Known (0), Troponin: < or = 1 x Normal Limit (0). PAOLA Risk Score: TOTAL SCORE = 0. Data reviewed: vital signs, nurses notes, lab test result(s), EKG, radiologic studies, CT scan. Consideration of Admission/Observation Escalation of care including admission/observation considered. I considered the following discharge prescriptions or medication management in the emergency department Medications were administered in the Emergency Department. See MAR. Independent interpretation of the following test(s) in the Emergency Department EKG: See my EKG interpretation above. Test considered but Not performed: Ultrasound NO 2 D ECHO. 09/06 10:10 Order name: CBC with Diff; Complete Time: 11:29 [facility] 09/06 10:10 Order name: Comprehensive Metabolic Panel; Complete Time: :44 [facility] 09/06 10:10 Order name: Troponin HS; Complete Time: :44 [facility] 09/06 10:10 Order name: Urinalysis w/ reflexes; Complete Time: 11:29 [facility] 09/06 10:10 Order name: PREGU; Complete Time: : [facility] 09/06 10:10 Order name: UDS; Complete Time: :44 [facility] 09/06 10:10 Order name: US Abdomen Limited; Complete Time: 11: [facility] 09/06 10:10 Order name: CT Chest For PE Angio [facility] 09/06 10:10 Order name: EKG; Complete Time: 10: [facility] 09/06 10:10 Order name: EKG - Nurse/Tech; Complete Time: 10:25 [facility] EC:17 Rate is 88 beats/min. Rhythm is regular. QRS [place] is Normal. PA interval is normal. QRS mimi interval is normal. QT interval is normal. No Q waves. T waves are Normal. No ST changes noted. Clinical impression: Normal ECG and No evidence of ischemia. Interpreted by me. Reviewed by me. Administered Medications: 11:21 Drug: NS 0.9% IV 1000 ml IV at 1000 ml once; to be given as a bolus over 60 minutes cm10 Route: IV; Rate: 1000 ml; Site: left antecubital; 12:26 Follow up: Response: No adverse reaction; IV Status: Completed infusion; IV Intake: me1 1000ml 11:21 Drug: Ativan IVP 0.5 mg IVP once Route: IVP; Site: left antecubital; cm10 12:26 Follow up: Response: No adverse reaction; Anxiety decreased me1 Disposition Summary: 09/06/24 12:13 Discharge Ordered Notes: Location: Home mimi Problem: new mimi Symptoms: have improved mimi Condition: Stable mimi Diagnosis - Epigastric abdominal tenderness mimi - Chest pain on breathing mimi - Headache mimi Followup: mimi - With: Private Physician - When: 2 - 3 days - Reason: Recheck today's complaints, Continuance of care, Re-evaluation by your physician Discharge Instructions: - Discharge Summary Sheet mimi - Abdominal Pain, Adult mimi - Nonspecific Chest Pain, Adult mimi - General Headache Without Cause mimi - Nonspecific Chest Pain, Adult, [id number] mimi - Aspirin and Your Heart mimi - General Headache Without Cause, [id number] mimi Forms: - Medication Reconciliation Form mimi - Antibiotic Education mimi - Prescription Opioid Use mimi - Patient Portal Instructions mimi - Leadership Thank You Letter mimi - Work release form eb Prescriptions: - Pepcid 20 mg Oral tablet - take 1 tablet ORAL route every 12 hours for 21 days; 42 tablet; Refills: 0, mimi Product Selection Permitted - Zithromax Z-Nicolas 250 mg Oral Tablet - take 1 tablet ORAL route as directed for 5 days Day 1 - take two (2) tablets mimi one time. Day 2, 3, 4 , 5 take one (1) tablet once daily.; 6 tablet; Refills: 0, Product Selection Permitted - dicyclomine 20 mg Oral tablet - take 1 tablet ORAL route 4 times per day; 28 tablet; Refills: 0, Product mimi Selection Permitted Signatures: Dispatcher [employer] EDMS Romeo Obando MD MD cha Leal, Jahala RN RN jl7 Zahra Tenorio RN RN cm10 Julia Carbajal RN me1 Corrections: (The following items were deleted from the chart) 10:11 10:11 CBC+H.LAB.BRZ ordered. EDMS EDMS 10:11 10:11 COMPREHENSIVE METABOLIC PANEL+C.LAB.BRZ ordered. EDMS EDMS 10:11 10:11 Troponin High Sensitivity+C.LAB.BRZ ordered. EDMS EDMS 10:11 10:11 Urinalysis+U.LAB.BRZ ordered. EDMS EDMS 10:11 10:11 Test, Urine+UC.LAB.BRZ ordered. EDMS EDMS 10:11 10:11 URINE DRUG SCREEN+UC.LAB.BRZ ordered. EDMS EDMS 10:12 10:11 Home Meds: control daily; jl7 jl7 10:30 10:30 LIPASE+C.LAB.BRZ ordered. EDMS EDMS
[2024-09-06 12:43] VITALS: BP 110/63; TEMP 98.2; O2SAT 99
--- NOTE | 2024-09-06 13:37 | EKG ---
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
== END 2024-09-06 12:35 | disposition home or self-care (01) ==
LOC: ER 09:46
DX: R07.1 Chest pain on breathing (principal); R10.816 Epigastric abdominal tenderness; R51.9 Headache, unspecified
CPT/HCPCS: 36415; 71275; 76705; 80053; 80307; 81001; 81025; 84484; 85025; 93005; 96361; 96374; 99285; J7030; Q9967